=== PATIENT | female | born 1985 | race Caucasian/White ===

== ENCOUNTER → 2016-09-01 | Day surgery (SDC) | payer BC ==
[~2016-09-01] MED LIST: GLUCAGON 1 MG/ML VIAL IM STA
[2016-09-01 11:29] VITALS: BP 122/86; PULSE 72; RESP 18; TEMP 98
--- NOTE | 2016-09-01 14:12 | MR ---
EXAMINATION TYPE: MR Enterography DATE OF EXAM: 09/01/2016 1:31 PM COMPARISON: NONE HISTORY: Anal fistula, Chron' s Disease CONTRAST: Standard multiplanar, multisequence imaging of the abdomen is performed without and with IV contrast, patient is injected with 14 mL intravenous MultiHance gadolinium contrast. Oral Volumen and Water wa s given as per enterography protocol. FINDINGS: Exam is noted suboptimal as typical field of view was performed which does not include enti re pelvis or anus at area of clinical concern. BOWEL: There is good distention of stomach and duodenal sweep. No suspicious enhancement is seen at t his level. There is fairly satisfactory distention of the small and large bowel loops. There is abnor mal mild to moderate wall thickening involving the terminal ileum over roughly 3 to 4 cm segment seen best on coronal image 91 series 701. There is mild suspicious irregular mucosal enhancement slightly out of proportion to normal bowel enhancement with some vasa engorgement. Findings are consistent wi th acute inflammatory change at this level. No suspicious proximal dilatation is seen to suggest sign ificant stricture at this level as is smaller caliber than expected for normal terminal ileum. No add itional areas of abnormal acute or chronic inflammatory changes are identified on this study. OTHER: Visualized portion of liver, gallbladder, spleen, aorta, pancreas, and both adrenal glands are normal in size and appear grossly unremarkable. No worrisome renal lesions or hydronephrosis is seen bilaterally. No concerning abdominal fluid collection is seen. Visualized portion of bladder is unre markable. Uterus is anteverted in shape and within normal limits in size. Ovaries are normal in size with scattered peripheral follicles. Lesion right gluteal soft tissue on postcontrast axial image 28 series 801 is of uncertain etiology suspected scar. IMPRESSION: Suboptimal study as noted above. Active inflammation terminal ileum is noted.
== END ==
LOC: RADMRIMAIN 11:10
PROVIDERS: ATTEND Internal Medicine Gastroenterology
DX: K60.3 Anal fistula (principal); K50.90 Crohn's disease, unspecified, without complications
CPT/HCPCS: 72197; 74183; J1610; A9577